=== PATIENT | female | born 1975 | race Caucasian/White ===

== ENCOUNTER → 2018-05-13 | Outpatient (CLI) | payer BC ==
--- NOTE | 2018-05-16 09:18 | MM ---
Reason for exam: screening (asymptomatic). Last mammogram was performed 3 years and 5 months ago. History: Family history of breast cancer in paternal grandmother at age 80. Taking hormonal contraceptives for 20 years beginning at age 16. Physical Findings: A clinical breast exam by your physician is recommended on an annual basis and results should be correlated with mammographic findings. MG Screening Mammo w CAD Bilateral CC and MLO view(s) were taken. Prior study comparison: December 04, 2014, left breast MG 3d work up w/cad LT. November 20, 2014, bilateral foundation screening mammo. The breast tissue is heterogeneously dense. This may lower the sensitivity of mammography. Finding: There is a 15 mm high density, obscured round mass in the upper outer quadrant to zone B, middle position of the left breast. Possible cysts central right breast on MLO view. ASSESSMENT: Incomplete: need additional imaging evaluation, BI-RAD 0 RECOMMENDATION: Ultrasound of the left breast. [facility] will attempt to contact patient to return for ultrasound.
== END ==
LOC: RADMAMWWP 13:13
PROVIDERS: ATTEND Internal Medicine
DX: Z12.31 Encounter for screening mammogram for malignant neoplasm of breast (principal)
CPT/HCPCS: 77067

== ENCOUNTER → 2018-05-31 | Outpatient (CLI) | payer BC ==
--- NOTE | 2018-05-31 10:55 | USB ---
Reason for exam: additional evaluation requested from abnormal screening. History: Family history of breast cancer in paternal grandmother at age 80. Taking hormonal contraceptives for 20 years beginning at age 16. Physical Findings: Nurse Summary: left breast is visually larger and tighter than right, left breast very nodular (nurse cw). US Breast Workup Limited ANASTASIYA Right limited breast ultrasound including focal area of concern, retroareolar and axilla demonstrates a 0.9 x 0.9 x 0.4cm oval, cystic lesion at 12 o'clock, a 0.9 x 0.7 x 0.4cm oval, mixed lesion at 1 o'clock for which a 6 month follow up is recommended and a 1.1 x 0.7 x 0.5cm oval, multicystic lesion at the posterior nipple. Left limited breast ultrasound including focal area of concern, retroareolar and axilla demonstrates a 1.2 x 1.2 x 0.8cm oval, cystic, complex lesion at 12 o'clock subareolar, a 0.9 x 0.8 x 0.6cm oval, cystic, complex lesion at 2 o'clock, a 0.7 x 0.6 x 0.6cm oval, cystic, complex lesion at 2 o'clock, a 1.1 x 1.0 x 0.7cm cystic lesion at 3 o'clock and a multicystic lesion at the posterior nipple with the largest measuring 0.8 x 0.9 x 0.7cm. These results were verbally communicated with the patient and result sheet given to the patient on 05/31/18. ASSESSMENT: Probably benign, BI-RAD 3 Benign, BI-RAD 2 finding in the left breast. Probably benign, BI-RAD 3 finding in the right breast. RECOMMENDATION: Ultrasound of the right breast in 6 months. Manage patient on a clinical basis.
== END | disposition home or self-care (01) ==
LOC: RADUSWWP 09:10
PROVIDERS: ATTEND Internal Medicine
DX: R92.8 Other abnormal and inconclusive findings on diagnostic imaging of breast (principal)

== ENCOUNTER → 2018-12-13 | Outpatient (CLI) | payer BC ==
--- NOTE | 2018-12-13 11:20 | USB ---
Reason for exam: follow-up at short interval from prior study. History: Family history of breast cancer in paternal grandmother at age 80. Taking hormonal contraceptives for 20 years beginning at age 16. Physical Findings: Nurse Summary: dense breast tissue generalized nodularity (nurse grabiel). US Breast Limited RT Right limited breast ultrasound including focal area of concern, retroareolar and axilla demonstrates a 0.9 x 0.9 x 0.3cm oval, cluster, cystic lesion at 12 o'clock, a 0.9 x 0.8 x 0.4cm oval, cluster, complex, cystic lesion at 1 o'clock, a 0.5 x 0.7 x 0.3cm, oval, mixed lesion at 1 o'clock, a 0.9 x 0.6 x 0.3cm oval, mixed lesion at 1 o'clock, a 0.8 x 0.7 x 0.5cm largest oval, cystic lesion at 10 o'clock, a 0.7 x 0.7 x 0.4cm complex, cystic lesion at the posterior nipple and a 1.5 x 1.3 x 0.9cm cystic lesion at 12 o'clock. All simple appearing cysts. These results were verbally communicated with the patient and result sheet given to the patient on 12/13/18. ASSESSMENT: Benign, BI-RAD 2 RECOMMENDATION: Return to routine screening mammogram schedule for both breasts. Back on schedule. Increased in size, painful. Simple cyst aspiration can be performed if desired.
== END | disposition home or self-care (01) ==
LOC: RADUSWWP 10:05
PROVIDERS: ATTEND Internal Medicine
DX: R92.8 Other abnormal and inconclusive findings on diagnostic imaging of breast (principal)

== ENCOUNTER → 2021-12-19 | Outpatient (CLI) | payer BC ==
--- NOTE | 2021-12-22 19:08 | MM ---
Reason for Exam: Screening (asymptomatic). Last mammogram was performed 3 year(s) and 7 month(s) ago. Patient History: Menarche at age 14. First Full-Term at age 24. Currently using Hormonal Contraceptives, beginning at age 16 for 20 years. Paternal grandmother had breast cancer, age 80. Last menstrual period: 12/13/2021 Risk Values: Dana 5 year model risk: 0.7%. NCI Lifetime model risk: 7.8%. Prior Study Comparison: 11/20/2014 Bilateral Screening Mammogram, [facility]. 12/04/2014 Left Diagnostic Mammogram, [facility]. 05/13/2018 Bilateral Screening Mammogram, [facility]. Tissue Density: The breast tissue is heterogeneously dense. This may lower the sensitivity of mammography. Findings: Analyzed By CAD. Increasing loosely grouped coarse microcalcifications 1:00 left breast. New/increasing microcalcifications anterior subareolar left breast for which magnification views are recommended. Underlying nodularity and possible areas of distortion within the lateral aspect of the left breast for which additional evaluation is recommended. Overall Assessment: Incomplete: need additional imaging evaluation, BI-RAD 0 Management: Special View Mammogram of the left breast. Diagnostic Breast Ultrasound of the left breast. 1. CC and lateral magnification views of the subareolar left breast microcalcifications. 2. Spot 3-D CC, spot 3-D MLO, and 3-D ML views for the possible underlying nodularity and distortion laterally at a middle depth in the left breast. 3. Left breast ultrasound 11:00 to 6:[address] [facility] will attempt to contact patient to return for supplemental views and ultrasound if indicated. Electronically signed and approved by: Mckenna Duran M.D. Radiologist
== END | disposition home or self-care (01) ==
LOC: RADMAMWWP 13:19
PROVIDERS: ATTEND Internal Medicine
DX: Z12.31 Encounter for screening mammogram for malignant neoplasm of breast (principal); Z80.3 Family history of malignant neoplasm of breast
CPT/HCPCS: 77063; 77067

== ENCOUNTER → 2021-12-26 | Outpatient (CLI) | payer BC ==
--- NOTE | 2021-12-26 14:49 | MM ---
Reason for Exam: Additional evaluation requested from abnormal screening. Last screening mammogram was performed less than 1 month ago. Patient History: Menarche at age 14. First Full-Term at age 24. Currently using Hormonal Contraceptives, beginning at age 16 for 20 years. Paternal grandmother had breast cancer, age 80. Risk Values: Dana 5 year model risk: 0.7%. NCI Lifetime model risk: 7.8%. Prior Study Comparison: 12/04/2014 Left Diagnostic Mammogram, [facility]. 05/13/2018 Bilateral Screening Mammogram, [facility]. 12/19/2021 Bilateral MG 3D screening mammo w/cad, [facility]. Tissue Density: Left: The breast tissue is heterogeneously dense. This may lower the sensitivity of mammography. Findings: Analyzed By CAD. Redemonstration of grouped calcifications in the retroareolar region which are better characterized on prior on 12/22/2021. This is felt to be secondary to the mammography machine used. The area of concern in the upper outer quadrant proximally 5.0 cm from the nipple with nearby coarse calcifications persists on compression imaging. Additional imaging with ultrasound is recommended. Overall Assessment: Incomplete: need additional imaging evaluation, BI-RAD 0 Management: Stereotactic Core Biopsy of the left breast. Diagnostic Breast Ultrasound of the right breast. Additional ultrasound imaging of left breast focal asymmetry. Stereotactic core biopsy of the left breast retroareolar grouped suspicious calcifications. A clinical breast exam by your physician is recommended on an annual basis and results should be correlated with mammographic findings. This exam should not preclude additional follow-up of suspicious palpable abnormalities. Results were given to the patient verbally at the time of exam. Electronically signed and approved by: Cleveland Du DO
--- NOTE | 2021-12-26 15:19 | USB ---
Patient History: Menarche at age 14. First Full-Term at age 24. Currently using Hormonal Contraceptives, beginning at age 16 for 20 years. Paternal grandmother had breast cancer, age 80. Risk Values: Dana 5 year model risk: 0.7%. NCI Lifetime model risk: 7.8%. Technique: Method: Targeted. Prior Study Comparison: 12/04/2014 Left Diagnostic Mammogram, [facility]. 05/13/2018 Bilateral Screening Mammogram, [facility]. 12/19/2021 Bilateral MG 3D screening mammo w/cad, [facility]. Findings: The lateral section of the breast of the left breast, the axilla of the left breast and the retroareolar of the left breast were scanned. Lateral left breast 12-6 o'clock and retroareolar. Multiple anechoic cysts are seen throughout the left breast which are all within subcentimeter of the nipple measuring up to 12 mm. No suspicious masses or fluid collections. Overall Assessment: Benign, BI-RAD 2 Management: Screening Mammogram of both breasts in 1 year. A clinical breast exam by your physician is recommended on an annual basis and results should be correlated with mammographic findings. This exam should not preclude additional follow-up of suspicious palpable abnormalities. Results were given to the patient verbally at the time of exam. Electronically signed and approved by: Cleveland Du DO
== END | disposition home or self-care (01) ==
LOC: RADMAMWWP 13:51
PROVIDERS: ATTEND Internal Medicine
DX: R92.8 Other abnormal and inconclusive findings on diagnostic imaging of breast (principal); Z80.3 Family history of malignant neoplasm of breast
CPT/HCPCS: 77065

== ENCOUNTER → 2022-05-08 | Outpatient (CLI) | payer BC ==
[2022-05-08 10:08] VITALS: BP 109/74; PULSE 74; RESP 16; TEMP 98.6
--- NOTE | 2022-05-08 11:26 | P.PN ---
Subjective Progress Note Date: 05/08/22 Principal diagnosis: flat epithelial atypia flat epithelial atypia, and radial scar left breast Marjorie is a 46-year-old white female who underwent a bilateral screening mammogram on [id number]. She is seen in consultation with respect to this for Dr. Haq. This revealed increasing loosely grouped coarse calcifications 1:00 left breast and no increasing microcalcifications anterior subareolar left breast for which magnification views were recommended. No lesions of concern were noted in the right breast. Magnification views were obtained on [id number]. This revealed redemonstration of grouped calcifications in the retroareolar region which are better characterized on 12/22/2021 this was felt to be secondary to the mammography machine use. The area of concern in the upper outer quadrant 5 cm from the nipple with nearby coarse calcifications persisted on compression and ultrasound was recommended. Ultrasound was performed on the same date showed multiple anechoic cysts throughout the left breast. No suspicious masses or fluid collections were identified. The coarse calcifications appear to be less suspicious and recommendation was for biopsy of the retroareolar calcifications. Patient states she has felt some fullness behind the left nipple areolar complex for approximately a year. She is not complaining of any nipple discharge or skin changes. He also complains of discomfort behind the nipple on the left breast. It is persistent throughout the month and not just right before her menstrual period. It is worse before her menstrual period. This intermittent sharp pain as high as an 8 on a scale of 1-10. It is not constant. She is not complaining of any trauma or infection in the breast. She's never had surgery on her breast in the past. She had a left breast stero biopsy on 03-13-22. Pathology revealed flat epithelial atypia and radial scar. Is not complaining of any recent new lumps masses or nodules of concern in either breast. Caffeine:weekly 1 cup nicotine: none BCP: 30 years chocolate: occasional Family History: Paternal grandfather: Colon cancer Paternal grandmother: Breast cancer Hormonal History: menarche: 14 breat fed: no, age at first : 25 last period 1 week ago, regular homones: none only BCP (not know name) Surgical history: tonsil Medical History: none Social History: nicotine: none alcohol: weekly beer drugs: none - Constitutional Constitutional: Denies chills, Denies fever - EENT Eyes: denies blurred vision, denies pain Ears: deny: decreased hearing, tinnitus Ears, nose, mouth and throat: Denies headache, Denies sore throat - Breasts Breasts: bilateral: as per HPI - Cardiovascular Cardiovascular: Denies chest pain, Denies shortness of breath - Respiratory Respiratory: Denies cough - Gastrointestinal Gastrointestinal: Denies abdominal pain, Denies diarrhea, Denies nausea, Denies vomiting - Genitourinary (Female) Genitourinary: Denies dysuria, Denies hematuria - Menstruation Menstruation: Reports period normal - Musculoskeletal Musculoskeletal: Denies myalgias - Integumentary Integumentary: Denies pruritus, Denies rash - Neurological Neurological: Denies numbness, Denies weakness - Psychiatric Psychiatric: Denies anxiety, Denies depression - Endocrine Endocrine: Reports weight change, Denies fatigue - Hematologic/Lymphatic Comment: none - Allergic/Immunologic Allergic/Immunologic: Reports as per HPI Past Medical History Past Medical History: No Reported History History of Any Multi-Drug Resistant Organisms: None Reported Past Surgical History: Tonsillectomy Past Anesthesia/Blood Transfusion Reactions: No Reported Reaction Past Psychological History: No Psychological Hx Reported Smoking Status: Never smoker Past Alcohol Use History: Occasional Past Drug Use History: None Reported Medications and Allergies Home Medications Medication Instructions Recorded Confirmed Type No Known Home Medications 03/04/22 03/13/22 History Allergies Allergy/AdvReac Type Severity Reaction Status Date / Time No Known Allergies Allergy Verified 03/13/22 07:30 Objective - Vital Signs Vital signs: Vital Signs Temp 98.6 F 05/08/22 10:03 Pulse 74 05/08/22 10:03 Resp 16 05/08/22 10:03 BP 109/74 05/08/22 10:03 Pulse Ox 99 05/08/22 10:03 FiO2 Intake & Output 05/07/22 05/08/22 05/08/22 18:59 06:59 18:59 Weight 61.235 kg - Constitutional General appearance: Present: cooperative - EENT Eyes: Present: EOMI ENT: Present: hearing grossly normal - Neck Neck: Present: normal ROM - Respiratory Respiratory: bilateral: CTA - Cardiovascular Rhythm: regular Heart sounds: normal: S1, S2 - Gastrointestinal General gastrointestinal: Present: soft - Integumentary Integumentary: Present: normal turgor - Musculoskeletal Musculoskeletal: Present: gait normal - Psychiatric Psychiatric: Present: A&O x's 3, appropriate affect, intact judgment & insight - Additional findings Additional findings: Breast Exam: BRA: 34B Inspection: bilateral grade 2 ptosis Palpation: Right breast: Multiple positional exam dense breast fibrocystic changes no dominant masses or nodules of concern Right axilla: No adenopathy of concern Left breast: Multi-positional exam dense breast, fibrocystic changes, no dominant masses or nodules of concern; echymosis at the biopsy site, small hematoma at the biopsy site no evidence of infection Left axilla: No adenopathy of concern Assessment and Plan Assessment: Impression: Status post left breast are detected core biopsy on 2322. Pathology revealed focal flat epithelial atypia and radial scar. Fibrocystic breast changes Plan: After discussion we have opted for a needle localization left breast lumpectomy. This is secondary to both the radial scar being present and the epithelial atypia as well as the patient's family history. I have discussed with the patient the option of watching flat epithelial atypia and at this time she would like to have this area removed. Risk of the procedure include but are not limited to bleeding, infection, reaction to the anesthetic. There is a risk that the needle moves them that the area was not adequately sampled she understands this and wishes to proceed. Needle localization left breast lumpectomy. We are not going to do a mastopexy incision. Possible onco-plastic tissue transfer. Cc: Dr. Haq
== END ==
LOC: WWCWWP 09:42
PROVIDERS: ATTEND Surgery
DX: Z85.3 Personal history of malignant neoplasm of breast (principal); D24.1 Benign neoplasm of right breast; N60.02 Solitary cyst of left breast; N64.89 Other specified disorders of breast; Z80.0 Family history of malignant neoplasm of digestive organs; Z80.3 Family history of malignant neoplasm of breast

== ENCOUNTER 2022-05-26 08:35 | Day surgery (SDC) | payer BC ==
[2022-05-22 08:14] VITALS: BMI 23.1
[~2022-05-26 08:35] MED LIST: DEXAMETHASONE SOD PHOSPHATE 4 MG/ML 1 ML VIAL IV ONE; HEPARIN SODIUM,PORCINE/PF 5,000 UNIT/0.5 ML SYRINGE SQ PRN; HYDROmorphone 0.5 MG/0.5 ML SYRINGE IVP PRN; LACTATED RINGERS 1,000 ML IV SCH; LIDOCAINE 1% (10MG/ML) FOR IV START INTRADERMA PRN; MIDAZOLAM 2 MG/2 ML VIAL IV PRN; ONDANSETRON 4 MG/2 ML VIAL IVP ONE; Pre Op ABX Message 1 EACH MISC MISCELLANE ONE
[2022-05-26] MEDS ORDERED: ALPRAZolam 0.5 MG TAB PO ONE (09:25)
[2022-05-26] MEDS ORDERED: ALPRAZolam 0.5 MG TAB ONE (09:26)
[2022-05-26] MEDS ORDERED: LIDOCAINE 1% INJ 10MG/ML (20 ML MDV) SQ ONE ×4 (10:05→13:00)
[2022-05-26] MEDS ORDERED: MIDAZOLAM 2 MG/2 ML VIAL ONE (11:43)
[2022-05-26] MEDS ORDERED: LIDOCAINE 2% INJ 20 MG/ML (2 ML VIAL) ONE (11:43)
[2022-05-26] MEDS ORDERED: fentaNYL (PF) 50 MCG/ML 2 ML AMP ONE (11:43)
[2022-05-26] MEDS ORDERED: PROPOFOL 10 MG/ML 20 ML VIAL IV ONE (11:43)
--- NOTE | 2022-05-26 12:59 | P.OP ---
Date of Procedure: 05/26/22 Preoperative Diagnosis: Left breast core biopsy radial scar/flat epithelial atypia Postoperative Diagnosis: Same Procedure(s) Performed: needle localization excisional lumpectomy, onco-plastic tissue transfer 24 centimeters squared Anesthesia: JONOA Surgeon: Jennifer Kimble Estimated Blood Loss (ml): 15 IV fluids (ml): 700 Pathology: other (Breast tissue) Condition: stable Disposition: same day Indications for Procedure: Left breast core biopsy flat epithelial atypia, radial scar Operative Findings: . Dense breast tissue Description of Procedure: The patient was first seen in the radiology department. The localization of the area of concern was performed. The patient was then brought to the operative suite. Following induction of anesthesia the left breast was prepped and draped in sterile fashion. Circumareolar incision was made and carried down to the shaft of the needle. Circumferential dissection around the needle was performed. The tissue was removed and painted for orientation. Radiograph of the specimen revealed the clip and the area of concern had been removed. The wound was examined for hemostasis. Titanium clips were placed. Hemostasis was attained using the electrocautery device. A superior pillar 3 x 2 cm was formed. An inferior pillar 3 X2 cm was formed. The cavity itself was 12 cm. A total onco-plastic tissue transfer of 24 cm was developed. Surgicel in powder form was placed. The pillars were brought together using 3-0 Vicryl. The deep tissues were closed using 3-0 Vicryl suture. The skin was closed using 4-0 Monocryl. All instrument and sponge counts were correct at the end of the case. The patient tolerated the procedure in stable condition.
--- NOTE | 2022-05-26 13:00 | P.DS ---
Providers Attending physician: Jennifer Kimble Primary care physician: Ilsa Haq Plan - Discharge Summary Discharge Rx Participant: Yes New Discharge Prescriptions: New HYDROcodone/APAP 5-325MG [Victoria 5] 1 - 2 each PO Q4H PRN #14 tab PRN Reason: Pain No Action Control Pill 1 tab PO DAILY Discharge Medication List Control Pill 1 tab PO DAILY 05/22/22 [History] HYDROcodone/APAP 5-325MG [Victoria 5] 1 - 2 each PO Q4H PRN #14 tab 05/26/22 [Rx] Follow up Appointment(s)/Referral(s): Jennifer Kimble MD [STAFF PHYSICIAN] - 06/11/22 9:40 am Activity/Diet/Wound Care/Special Instructions: do not drive for 24 hours after discharge or if taking narcotic pain medicine may shower after 48 hours wear bra at all times Discharge Disposition: HOME SELF-CARE
[2022-05-26 13:15] VITALS: TEMP 97.1
[2022-05-26 13:46] VITALS: RESP 14
[2022-05-26 14:03] VITALS: BP 139/86; PULSE 72
--- NOTE | 2022-06-05 09:22 | MM ---
Risk Values: Dana 5 year model risk: 1.0%. NCI Lifetime model risk: 9.3%. Pathology Description: Approach: Lateral to Medial Needle Type: 7 cm Kopan The procedure of needle localization with wire placement and than surgical excision was explained to the patient. Benefits, alternatives, and risks were discussed. An informed consent was then obtained. Given central aspect of lesions, no real significant shortness pathway is present. And lateral to medial approach is chosen . The overlying skin was prepped and draped in usual sterile fashion. Lidocaine is used as anesthetic into the skin and subcutaneous tissue up to the level of area of concern. A 7 cm needle was used. It was placed via a lateral to medial approach under mammographic guidance. Subsequent 90 degrees mammogram show the needle to be in satisfactory position relative to the targeted biopsy clip. At this point, wire was placed and the needle was withdrawn. The wire was fixed to patient's skin. Images were marked for surgeon. The patient tolerated the procedure well without any immediate complication. The patient was kept in the radiology department for short stay after the procedure and then taken to surgery for surgical excision. Targeted biopsy clip and wire are identified in specimen mammogram. The patient was kept in hospital for short stay after the procedure and then discharged home in stable condition. Impression: Successful, uncomplicated needle localization with wire placement and surgical excision of targeted biopsy clip in the left breast, full pathology results to follow. Pathology Results: Result: High risk, Flat epithelial atypia. LEFT BREAST, NEEDLE LOCALIZATION EXCISION: Focal flat epithelial atypia (FEA) with calcifications in a background of fibrocystic changes including cysts, columnar cell change/columnar cell hyperplasia, apocrine metaplasia, adenosis and fibrosis. Margins negative for atypia. Previous biopsy site. Overall Assessment: High risk Management: Diagnostic Mammogram of the left breast in 6 months. Diagnostic Breast Ultrasound of the left breast in 6 months. Electronically signed and approved by: Raúl Rice M.D.
== END 2022-05-26 14:23 | disposition home or self-care (01) ==
LOC: OR 08:35
PROVIDERS: ATTEND Surgery
DX: N64.89 Other specified disorders of breast (principal); L90.5 Scar conditions and fibrosis of skin; Z80.3 Family history of malignant neoplasm of breast; Z80.0 Family history of malignant neoplasm of digestive organs; F10.20 Alcohol dependence, uncomplicated
CPT/HCPCS: 19301; 81025; 88307; 76098; 19281; C1819; J2250; J1100; J2405; J2001 ×2; J3010; J2704; J1644

== ENCOUNTER → 2022-06-11 | Outpatient (CLI) | payer BC ==
[2022-06-11 09:48] VITALS: BP 133/84; PULSE 78; RESP 17; TEMP 98
--- NOTE | 2022-06-11 10:02 | P.PN ---
Progress Note - Text Progress Note Date: 06/11/22 The patient is status post left breast needle localization and excision on 05-26-22. Her pathology revealed flat epithelial atypia. She tolerated the procedure with no difficulty. Discussed the potential increased risk of cancer secondary to the atypia. At this time she is premenopausal. She would prefer to have close surveillance and is not interested in chemo prophylaxis. Examination: Incision: Clean and dry Lungs: Clear Heart: Regular rate and rhythm Plan: Left breast mammogram in 6 months with physician exam at that time CC: Dr. Haq
== END ==
LOC: WWCWWP 09:32
PROVIDERS: ATTEND Surgery
DX: Z85.3 Personal history of malignant neoplasm of breast (principal)

== ENCOUNTER → 2022-12-04 | Outpatient (CLI) | payer BC ==
--- NOTE | 2022-12-04 08:50 | MM ---
Reason for Exam: Follow-up at short interval from prior study. Last screening mammogram was performed 11 month(s) ago. Patient History: Menarche at age 14. First Full-Term at age 24. Currently using Hormonal Contraceptives, beginning at age 16 for 20 years. 05/26/2022, High risk MG pre op needle loc LT on the left side. 03/13/2022, High risk MG stereo VAD BX LT on the left side. Paternal grandmother had breast cancer, age 80. Maternal grandmother had breast cancer, age 93. Last menstrual period: 11/06/2022 Risk Values: Dana 5 year model risk: 1.5%. NCI Lifetime model risk: 11.7%. Prior Study Comparison: 05/13/2018 Bilateral Screening Mammogram, [facility]. 12/19/2021 Bilateral MG 3D screening mammo w/cad, [facility]. 12/26/2021 Left MG work up mamm w CAD LT, [facility]. Tissue Density: Left: The breast tissue is heterogeneously dense. This may lower the sensitivity of mammography. Findings: Analyzed By CAD. Postsurgical changes in the left breast with surgical clips identified. There is a 1.1 cm partially obscured round mass within the lower outer right breast at middle depth. Stable group of calcifications within the left breast. No new suspicious calcifications. Overall Assessment: Incomplete: need additional imaging evaluation, BI-RAD 0 Management: Diagnostic Breast Ultrasound of the left breast. A clinical breast exam by your physician is recommended on an annual basis and results should be correlated with mammographic findings. This exam should not preclude additional follow-up of suspicious palpable abnormalities. Results were given to the patient verbally at the time of exam. Note on Dana scores and lifetime risk: 1. A Dana score greater than 3% is considered moderate risk. If this is the case, consider specialist referral to assess eligibility for a risk reducing agent. If overall lifetime risk for the development of breast cancer is 20% or higher, the patient may qualify for future screening with alternating mammogram and breast MRI. Electronically signed and approved by: Casa Gutierres D.O.
--- NOTE | 2022-12-04 09:20 | USB ---
Reason for Exam: Additional evaluation requested from abnormal screening. Patient History: Menarche at age 14. First Full-Term at age 24. Currently using Hormonal Contraceptives, beginning at age 16 for 20 years. 05/26/2022, High risk MG pre op needle loc LT on the left side. 03/13/2022, High risk MG stereo VAD BX LT on the left side. Paternal grandmother had breast cancer, age 80. Maternal grandmother had breast cancer, age 93. Risk Values: Dana 5 year model risk: 1.5%. NCI Lifetime model risk: 11.7%. Prior Study Comparison: 05/13/2018 Bilateral Screening Mammogram, [facility]. 12/19/2021 Bilateral MG 3D screening mammo w/cad, [facility]. 12/26/2021 Left MG work up mamm w CAD LT, [facility]. 12/26/2021 Left US breast workup limited LT, [facility]. Findings: The lower outer quadrant of the left breast, the axilla of the left breast and the retroareolar of the left breast were scanned. Targeted ultrasound of the left breast from 3-6 o'clock was performed with additional evaluation the nipple and axilla. Benign cyst at the nipple with internal debris measuring 1.2 x 0.8 x 1.3 cm. Additional cluster of cysts at 3-4 o'clock 4 cm from the nipple the largest measuring 1.0 x 0.7 x 0.9 cm. Additional scattered smaller cysts identified. Overall Assessment: Benign, BI-RAD 2 Management: Diagnostic Mammogram of the left breast in 6 months. A clinical breast exam by your physician is recommended on an annual basis and results should be correlated with mammographic findings. This exam should not preclude additional follow-up of suspicious palpable abnormalities. Results were given to the patient verbally at the time of exam. Electronically signed and approved by: Casa Gutierres D.O.
--- NOTE | 2022-12-04 09:47 | MM ---
Reason for Exam: Follow-up at short interval from prior study. Last screening mammogram was performed 11 month(s) ago. Patient History: Menarche at age 14. First Full-Term at age 24. Currently using Hormonal Contraceptives, beginning at age 16 for 20 years. 05/26/2022, High risk MG pre op needle loc LT on the left side. 03/13/2022, High risk MG stereo VAD BX LT on the left side. Paternal grandmother had breast cancer, age 80. Maternal grandmother had breast cancer, age 93. Risk Values: Dana 5 year model risk: 1.5%. NCI Lifetime model risk: 11.7%. Tissue Density: The breast tissue is heterogeneously dense. This may lower the sensitivity of mammography. Findings: Analyzed By CAD. Postsurgical changes in the left breast with surgical clips identified. There is a 1.1 cm partially obscured round mass within the lower outer right breast at middle depth. Stable group of calcifications within the left breast. No new suspicious calcifications. 1.1 cm ovoid partially obscured mass within the upper outer right breast at middle depth. Overall Assessment: Incomplete: need additional imaging evaluation, BI-RAD 0 Management: Diagnostic Breast Ultrasound of both breasts. A clinical breast exam by your physician is recommended on an annual basis and results should be correlated with mammographic findings. This exam should not preclude additional follow-up of suspicious palpable abnormalities. Results were given to the patient verbally at the time of exam. Note on Dana scores and lifetime risk: 1. A Dana score greater than 3% is considered moderate risk. If this is the case, consider specialist referral to assess eligibility for a risk reducing agent. If overall lifetime risk for the development of breast cancer is 20% or higher, the patient may qualify for future screening with alternating mammogram and breast MRI. Electronically signed and approved by: Casa Gutierres D.O.
--- NOTE | 2022-12-04 10:00 | USB ---
Reason for Exam: Additional evaluation requested from abnormal screening. Patient History: Menarche at age 14. First Full-Term at age 24. Currently using Hormonal Contraceptives, beginning at age 16 for 20 years. 05/26/2022, High risk MG pre op needle loc LT on the left side. 03/13/2022, High risk MG stereo VAD BX LT on the left side. Paternal grandmother had breast cancer, age 80. Maternal grandmother had breast cancer, age 93. Risk Values: Dana 5 year model risk: 1.5%. NCI Lifetime model risk: 11.7%. Prior Study Comparison: 05/13/2018 Bilateral Screening Mammogram, [facility]. 12/19/2021 Bilateral MG 3D screening mammo w/cad, [facility]. 12/26/2021 Left MG work up mamm w CAD LT, [facility]. 12/26/2021 Left US breast workup limited LT, [facility]. Findings: The upper outer quadrant of the right breast, the lower outer quadrant of the left breast, the axilla of both breasts and the retroareolar of both breasts were scanned. Targeted ultrasound of the right breast from 9-12 o'clock with additional evaluation the nipple and axilla. Multiple simple cysts are identified with largest in the right breast at 10:00 3 cm from the nipple measuring 0.8 x 1.0 x 1.3 cm. Targeted ultrasound left breast from 3-6 o'clock with additional evaluation of the nipple and axilla was performed. Multiple simple cysts are identified with largest in the left breast at 4:00 measuring 1.0 x 0.7 x 0.9 cm. Group of cysts are identified at 3-4 o'clock 4 cm from the nipple in the left breast. Additionally there is a benign cyst within the left nipple region measuring 1.2 x 0.8 x 1.3 cm with internal moving debris. Overall Assessment: Benign, BI-RAD 2 Management: Diagnostic Mammogram of the left breast in 6 months. A clinical breast exam by your physician is recommended on an annual basis and results should be correlated with mammographic findings. This exam should not preclude additional follow-up of suspicious palpable abnormalities. Results were given to the patient verbally at the time of exam. Electronically signed and approved by: Casa Gutierres D.O.
== END | disposition home or self-care (01) ==
LOC: RADMAMWWP 08:22
PROVIDERS: ATTEND Surgery
DX: N60.01 Solitary cyst of right breast (principal); N60.02 Solitary cyst of left breast; R92.333 Mammographic heterogeneous density, bilateral breasts; Z80.3 Family history of malignant neoplasm of breast
CPT/HCPCS: 77062; 77066

== ENCOUNTER → 2022-12-18 | Outpatient (CLI) | payer BC ==
[2022-12-18 09:37] VITALS: BP 130/91; PULSE 96; RESP 17; TEMP 98.3
--- NOTE | 2022-12-18 09:49 | P.PN ---
Subjective Progress Note Date: 12/18/22 Abnormal left breast mammogram Marjorie is a 46-year-old white female who underwent a bilateral screening mammogram on [id number]. She is seen in consultation with respect to this for Dr. Haq. This revealed increasing loosely grouped coarse calcifications 1:00 left breast and no increasing microcalcifications anterior subareolar left breast for which magnification views were recommended. No lesions of concern were noted in the right breast. Magnification views were obtained on [id number]. This revealed redemonstration of grouped calcifications in the retroareolar region which are better characterized on 12/22/2021 this was felt to be secondary to the mammography machine use. The area of concern in the upper outer quadrant 5 cm from the nipple with nearby coarse calcifications persisted on compression and ultrasound was recommended. Ultrasound was performed on the same date showed multiple anechoic cysts throughout the left breast. No suspicious masses or fluid collections were identified. The coarse calcifications appear to be less suspicious and recommendation was for biopsy of the retroareolar calcifications. Patient states she has felt some fullness behind the left nipple areolar complex for approximately a year. She is not complaining of any nipple discharge or skin changes. He also complains of discomfort behind the nipple on the left breast. It is persistent throughout the month and not just right before her menstrual period. It is worse before her menstrual period. This intermittent sharp pain as high as an 8 on a scale of 1-10. It is not constant. She is not complaining of any trauma or infection in the breast. She's never had surgery on her breast in the past. 12-18-22 The patient underwent a stero tactic core biopsy of a lesion of concern in the left breast This revealed flat epithelial atypia/ radial scar She underwent a left breast needle localization excisional biopsy of the area on . Pathology again revealed flat epithelial atypia. She comes today for surveillance. She had a bilateral mammogram on [id number] this was felt to be incomplete and bilateral breast ultrasounds were done. The ultrasounds revealed: Right breast: Multiple simple cyst Left breast: Multiple simple cyst These were felt to be overall benign BIRADS 2 diagnostic mammogram of the left breast in 6 months She has not noted any new lumps masses or nodules of concern in either breast. She is complaining of some pain in the 12 o'clock position of the left breast. This has been present for 1 week it is fleeting in nature. This was in conjunction with her period. Has been drinking more coffee in the month of November. Caffeine:weekly 1 cup nicotine: none BCP: 30 years chocolate: occasional Family History: Paternal grandfather: Colon cancer Paternal grandmother: Breast cancer ,. Hormonal History: menarche: 14 breat fed: no, age at first : 25 last period 1 week ago, regular homones: none only BCP (not know name) Surgical history: tonsil left breast biopsy Medical History: none Social History: nicotine: none alcohol: weekly beer drugs: none - Constitutional Constitutional: Denies chills, Denies fever - EENT Eyes: denies blurred vision, denies pain Ears: deny: decreased hearing, tinnitus Ears, nose, mouth and throat: Denies headache, Denies sore throat - Breasts Breasts: bilateral: as per HPI - Cardiovascular Cardiovascular: Denies chest pain, Denies shortness of breath - Respiratory Respiratory: Denies cough - Gastrointestinal Gastrointestinal: Denies abdominal pain, Denies diarrhea, Denies nausea, Denies vomiting - Genitourinary (Female) Genitourinary: Denies dysuria, Denies hematuria - Menstruation Menstruation: Reports period normal - Musculoskeletal Musculoskeletal: Denies myalgias - Integumentary Integumentary: Denies pruritus, Denies rash - Neurological Neurological: Denies numbness, Denies weakness - Psychiatric Psychiatric: Denies anxiety, Denies depression - Endocrine Endocrine: Reports weight change, Denies fatigue - Hematologic/Lymphatic Comment: none - Allergic/Immunologic Allergic/Immunologic: Reports as per HPI Past Medical History Past Medical History: No Reported History History of Any Multi-Drug Resistant Organisms: None Reported Past Surgical History: Tonsillectomy Past Anesthesia/Blood Transfusion Reactions: No Reported Reaction Past Psychological History: No Psychological Hx Reported Smoking Status: Never smoker Past Alcohol Use History: Occasional Past Drug Use History: None Reported Medications and Allergies Home Medications Medication Instructions Recorded Confirmed Type No Known Home Medications 03/04/22 03/13/22 History Allergies Allergy/AdvReac Type Severity Reaction Status Date / Time No Known Allergies Allergy Verified 03/13/22 07:30 Objective - Vital Signs Vital signs: Vital Signs Temp 98.3 F 12/18/22 09:19 Pulse 96 12/18/22 09:19 Resp 17 12/18/22 09:19 BP 130/91 12/18/22 09:19 Pulse Ox 100 12/18/22 09:19 FiO2 Intake & Output 12/17/22 12/18/22 12/18/22 18:59 06:59 18:59 Weight 63.503 kg - Constitutional General appearance: Present: cooperative - EENT Eyes: Present: EOMI ENT: Present: hearing grossly normal - Neck Neck: Present: normal ROM - Respiratory Respiratory: bilateral: CTA - Cardiovascular Rhythm: regular Heart sounds: normal: S1, S2 - Integumentary Integumentary: Present: normal turgor - Musculoskeletal Musculoskeletal: Present: gait normal - Psychiatric Psychiatric: Present: A&O x's 3, appropriate affect, intact judgment & insight - Additional findings Additional findings: Breast Exam: BRA: 34B Inspection: bilateral grade 2 ptosis Palpation: Right breast: Multiple positional exam dense breast fibrocystic changes no dominant masses or nodules of concern Right axilla: No adenopathy of concern Left breast: Multi-positional exam dense breast, fibrocystic changes, no dominant masses or nodules of concern Left axilla: No adenopathy of concern Assessment and Plan Assessment: Impression: Bilateral fibrocystic breast changes Tenderness left breast 12 o'clock position no discrete masses at that site Recent bilateral ultrasound multiple cysts in each breast. The ultrasound was done on [id number] Plan: Lifestyle modification/decrease caffeine intake If patient notes anything of concern she will call us sooner otherwise left breast mammogram in 6 months with examination at that time CC: DR. Haq
== END ==
LOC: WWCWWP 08:52
PROVIDERS: ATTEND Surgery
DX: N60.11 Diffuse cystic mastopathy of right breast (principal); N60.12 Diffuse cystic mastopathy of left breast; Z80.3 Family history of malignant neoplasm of breast

== ENCOUNTER → 2023-06-08 | Outpatient (CLI) | payer BC ==
--- NOTE | 2023-06-08 15:10 | MM ---
Reason for Exam: Follow-up at short interval from prior study. Last screening mammogram was performed 6 month(s) ago. Patient History: Menarche at age 14. First Full-Term at age 24. Currently using Hormonal Contraceptives, beginning at age 16 for 20 years. 05/26/2022, High risk MG pre op needle loc LT on the left side. 03/13/2022, High risk MG stereo VAD BX LT on the left side. Paternal grandmother had breast cancer, age 80. Maternal grandmother had breast cancer, age 93. Risk Values: Dana 5 year model risk: 1.5%. NCI Lifetime model risk: 11.7%. Prior Study Comparison: 12/26/2021 Left MG work up mamm w CAD LT, [facility]. 12/04/2022 Bilateral MG 3D diag mammo w/cad ANASTASIYA, [facility]. 12/04/2022 Left MG 3D diag mammo w/cad LT, [facility]. Tissue Density: Left: The breasts are extremely dense, which lowers the sensitivity of mammography. Findings: Analyzed By CAD. The pattern is symmetrical. Postbiopsy surgical clips are within the left breast. There are stable heterogenous calcifications in the upper outer mid left breast. The rounded density in the upper outer left breast the visualized. No significant interval changes are evident. No suspicious groups of microcalcifications, spiculated or lobular masses, architectural distortion or other secondary signs of malignancy are mammographically apparent. Overall Assessment: Benign, BI-RAD 2 Management: Screening Mammogram of both breasts in 6 months. A negative mammogram report should not preclude additional follow up of suspicious palpable abnormalities. Patient should continue monthly self breast exam. A clinical breast exam by your physician is recommended on an annual basis and results should be correlated with mammographic findings. Note on Dana scores and lifetime risk: 1. A Dana score greater than 3% is considered moderate risk. If this is the case, consider specialist referral to assess eligibility for a risk reducing agent. 2. If overall lifetime risk for the development of breast cancer is 20% or higher, the patient may qualify for future screening with alternating mammogram and breast MRI. Electronically signed and approved by: Shane Chavez D.O. Radiologis
== END | disposition home or self-care (01) ==
LOC: RADMAMWWP 14:36
PROVIDERS: ATTEND Surgery
DX: R92.8 Other abnormal and inconclusive findings on diagnostic imaging of breast (principal); Z80.3 Family history of malignant neoplasm of breast
CPT/HCPCS: 77061; 77065